=== PATIENT | female | born 1965 | race Caucasian/White ===

== ENCOUNTER → 2016-12-01 | Outpatient (CLI) | payer BC | LOC: BRMIMAGING 13:44 | PROVIDERS: ATTEND Internal Medicine | DX: Z12.31 Encounter for screening mammogram for malignant neoplasm of breast (principal) | CPT/HCPCS: G0202 ==

== ENCOUNTER → 2017-08-19 | Outpatient (CLI) | payer BC, OTHER | LOC: BRMIMAGING 11:13 | PROVIDERS: ATTEND Internal Medicine | DX: M40.204 Unspecified kyphosis, thoracic region (principal) | CPT/HCPCS: 72070-PO ==

== ENCOUNTER → 2017-12-04 | Outpatient (CLI) | payer BC | LOC: BRMIMAGING 07:36 | PROVIDERS: ATTEND Internal Medicine | DX: Z12.31 Encounter for screening mammogram for malignant neoplasm of breast (principal) ==

== ENCOUNTER → 2018-06-18 | Outpatient (CLI) | payer BC | LOC: EMCIMAGING 08:49 | PROVIDERS: ATTEND Nurse Practitioner | DX: M51.9 Unspecified thoracic, thoracolumbar and lumbosacral intervertebral disc disorder (principal); M54.16 Radiculopathy, lumbar region; Z87.39 Personal history of other diseases of the musculoskeletal system and connective tissue | CPT/HCPCS: 72148-PN ==